=== PATIENT | male | born 1970 | race Caucasian/White ===

== ENCOUNTER 2016-09-04 22:37 | Emergency (ER) | payer MEDICAID ==
[2016-09-04 22:38] VITALS: BMI 24.0
[2016-09-04 22:49] VITALS: RESP 20
--- NOTE | 2016-09-04 23:08 | C.PDOC ---
History Of Present Illness Patient presents to the emergency room with ETOH intoxication. Patient wants a place to sleep. Patient denies any physical complaints. Patient admits to drinking ETOH tonight. Time Seen by Provider: 09/04/16 23:07 Chief Complaint (Nursing): Medical Clearance History Per: Patient History/Exam Limitations: no limitations Onset/Duration Of Symptoms: Hrs Current Symptoms Are (Timing): Still Present Severity: Mild Recent travel outside of the [place]: No Past Medical History Reviewed: Historical Data, Nursing Documentation, Vital Signs Vital Signs: Last Vital Signs Temp 98.3 F 09/04/16 22:44 Pulse 78 09/05/16 03:19 Resp 20 09/05/16 03:19 BP 130/70 09/05/16 03:19 Pulse Ox 97 09/05/16 03:19 - Medical History PMH: Diabetes, HTN, Hypercholesterolemia Denies: Chronic Kidney Disease Family History: States: No Known Family Hx - Social History Hx Tobacco Use: No Hx Alcohol Use: Yes Hx Substance Use: No - Immunization History Hx Tetanus Toxoid Vaccination: No Hx Influenza Vaccination: No Hx Pneumococcal Vaccination: No Review Of Systems Constitutional: Positive for: Other (ETOH intoxication). Negative for: Fever, Chills Gastrointestinal: Negative for: Nausea, Vomiting, Diarrhea Physical Exam - Physical Exam Appears: Non-toxic, No Acute Distress, Other (ETOH on breath) Skin: Warm, Dry, No Rash Extremity: Normal ROM, No Tenderness Neurological/Psych: Oriented x3, Normal Speech ED Course And Treatment O2 Sat by Pulse Oximetry: 98 Pulse Ox Interpretation: Normal Reevaluation Time: 05:14 Reassessment Condition: Improved ED OBSERVATION Discharge: Yes Date of observation admission: 09/04/16 Time of observation admission: 23:08 - Observation admission statement Patient is being placed in observation because:: acute alcohol intoxication - Goals of Observation Goals of observation are:: sobriety - Progress Note Progress Note: 09/04/16 23:08 vitals stable, no complaints. just wants to sleep 09/05/16 01:10 no complaints 09/05/16 03:10 vitals stable Disposition Counseled Patient/Family Regarding: Studies Performed, Diagnosis, Need For Followup - Disposition Referrals: [facility] [Outside] Disposition Time: 05:14 Condition: FAIR Instructions: Alcohol Intoxication (DC) - Clinical Impression Clinical Impression: Alcohol abuse - Scribe Statement The provider has reviewed the documentation as recorded by the Zaidaibsamia Lino Provider Scribe Attestation: All medical record entries made by the Scribe were at my direction and personally dictated by me. I have reviewed the chart and agree that the record accurately reflects my personal performance of the history, physical exam, medical decision making, and the department course for this patient. I have also personally directed, reviewed, and agree with the discharge instructions and disposition.
[2016-09-05 05:44] VITALS: BP 141/70; PULSE 79; TEMP 97.4; O2SAT 99
== END 2016-09-05 05:44 | disposition home or self-care (01) ==
LOC: C.ER 22:37
DX: F10.10 Alcohol abuse, uncomplicated (principal); Y90.9 Presence of alcohol in blood, level not specified

== ENCOUNTER 2017-02-24 15:09 | Emergency (ER) | payer MEDICAID ==
[2017-02-24 15:09] VITALS: BMI 24.0
[2017-02-24 15:20] VITALS: BP 131/91; PULSE 110; TEMP 98.1
--- NOTE | 2017-02-24 15:40 | C.PDOC ---
History Of Present Illness 46 year old male with a history of Diabetes and HTN presents to the ED with complaints of left great toe pain that began yesterday. Patient notes use of tooth pick to scrap the area but denies weakness or numbness. Time Seen by Provider: 02/24/17 15:32 Chief Complaint (Nursing): Lower Extremity Problem/Injury History Per: Patient History/Exam Limitations: no limitations Current Symptoms Are (Timing): Still Present Recent travel outside of the [place]: No Past Medical History Reviewed: Historical Data, Nursing Documentation, Vital Signs Vital Signs: Last Vital Signs Temp 98.1 F 02/24/17 15:17 Pulse 110 H 02/24/17 15:17 Resp 19 02/24/17 15:45 BP 131/91 H 02/24/17 15:17 Pulse Ox 99 02/24/17 15:45 - Medical History PMH: Diabetes, HTN, Hypercholesterolemia Denies: Chronic Kidney Disease Family History: States: Other Other Family History: Non-contributory. - Social History Hx Tobacco Use: No Hx Alcohol Use: Yes Hx Substance Use: No - Immunization History Hx Tetanus Toxoid Vaccination: No Hx Influenza Vaccination: No Hx Pneumococcal Vaccination: No Review Of Systems Except As Marked, All Systems Reviewed And Found Negative. Neurological: Negative for: Weakness, Numbness Physical Exam - Physical Exam Appears: Well, Non-toxic, No Acute Distress Skin: Warm, Dry Head: Atraumatic, Normacephalic Extremity: Normal ROM, No Tenderness, No Pedal Edema, No Calf Tenderness, Capillary Refill (good capillary refill, less than two seconds ), No Deformity, No Swelling, Other (ingrown toe nail to the left great toe with no erythema or swelling ) ED Course And Treatment O2 Sat by Pulse Oximetry: 100 (room air ) Disposition - Disposition Referrals: Tamar Pollock DPM [Staff Provider] - Disposition: HOME/ ROUTINE Disposition Time: 15:40 Condition: GOOD Additional Instructions: Please follow up with the foot doctor. Return to the ER for any worsening symptoms or for any other concerns. Prescriptions: Mupirocin 2% Ointment [Bactroban Ointment] 1 appl TP BID #1 tube Forms: General Discharge Instructions, [facility] (Sami) - Clinical Impression Clinical Impression: Toe pain - Scribe Statement The provider has reviewed the documentation as recorded by the Scribe Danya Kyle All medical record entries made by the Scribe were at my direction and personally dictated by me. I have reviewed the chart and agree that the record accurately reflects my personal performance of the history, physical exam, medical decision making, and the department course for this patient. I have also personally directed, reviewed, and agree with the discharge instructions and disposition.
[2017-02-24 15:46] VITALS: RESP 19
[2017-02-24 16:20] VITALS: O2SAT 100
== END 2017-02-24 15:45 | disposition home or self-care (01) ==
LOC: C.ER 15:09
DX: M79.675 Pain in left toe(s) (principal)

== ENCOUNTER 2017-05-01 18:01 | Emergency (ER) | payer MEDICAID ==
[2017-05-01 18:01] VITALS: BMI 24.0
[2017-05-01 18:18] VITALS: RESP 18; TEMP 98
[2017-05-01 18:35] VITALS: BP 124/75; PULSE 110; O2SAT 97
--- NOTE | 2017-05-01 19:13 | C.PDOC ---
History Of Present Illness 47 year old male with a PMHx of diabetes, non insulin dependent, presents to the ED for evaluation of right ankle pain. Patient reports pain is located more over lateral aspect of right ankle radiating up to his right hip and right lower back, pain worsens with movement. Otherwise, Patient denies fever, chills , headache, dizziness, neck pain, CP, SOB dyspnea, diaphoresis, palpitation, abd. pain, N/V/D, denies known direct trauma or injury, hematuria, saddle anesthesia, incontinence, denies weakness, sensory or vascular deficits to B/L LEs. No risk factors for DVT, PE. Ambulatory in ED with stable gait, not in nay apparent distress. Time Seen by Provider: 05/01/17 18:36 Chief Complaint (Nursing): Lower Extremity Problem/Injury History Per: Patient History/Exam Limitations: no limitations Onset/Duration Of Symptoms: Days Current Symptoms Are (Timing): Still Present Recent travel outside of the [place]: No Additional History Per: Patient - Ankle/Foot Currently Unable To: Bend Or Move Past Medical History Reviewed: Historical Data, Nursing Documentation, Vital Signs Vital Signs: Last Vital Signs Temp 98 F 05/01/17 18:15 Pulse 110 H 05/01/17 18:15 Resp 18 05/01/17 18:15 BP 124/75 05/01/17 18:15 Pulse Ox 97 05/01/17 19:46 - Medical History PMH: Diabetes, HTN, Hypercholesterolemia Denies: Chronic Kidney Disease Surgical History: No Surg Hx Family History: States: Unknown Family Hx - Social History Hx Tobacco Use: No Hx Alcohol Use: Yes Hx Substance Use: No - Immunization History Hx Tetanus Toxoid Vaccination: No Hx Influenza Vaccination: No Hx Pneumococcal Vaccination: No Review Of Systems Constitutional: Negative for: Fever, Chills Cardiovascular: Negative for: Chest Pain Respiratory: Negative for: Cough, Shortness of Breath Gastrointestinal: Negative for: Nausea, Vomiting, Abdominal Pain Genitourinary: Negative for: Incontinence Musculoskeletal: Positive for: Foot Pain (Right ankle) Skin: Negative for: Rash Neurological: Negative for: Weakness, Numbness, Headache Physical Exam - Physical Exam Appears: Non-toxic, No Acute Distress Skin: Normal Color, Warm, Dry Head: Normacephalic Eye(s): bilateral: PERRL Ear(s): Bilateral: Normal Nose: No Discharge, No Deformity Oral Mucosa: Moist, No Drooling Throat: Normal, No Erythema, No Exudate Neck: Normal ROM, Trachea Midline, Supple Chest: Symmetrical Cardiovascular: Rhythm Regular, No Murmur Respiratory: No Decreased Breath Sounds, No Accessory Muscle Use Gastrointestinal/Abdominal: Soft, No Tenderness, No Organomegaly, No Guarding, No Rebound Extremity: Normal ROM, Tenderness (Mild, over lateral aspect of right ankle ), No Pedal Edema, No Calf Tenderness (B/L), Capillary Refill (less than 2 seconds) , No Deformity, No Swelling Pulses: Left Dorsalis Pedis: Normal, Right Dorsalis Pedis: Normal Neurological/Psych: Oriented x3, Normal Speech, Normal Cognition, Normal Motor, Normal Sensation, Normal Reflexes ED Course And Treatment O2 Sat by Pulse Oximetry: 97 (On RA) Pulse Ox Interpretation: Normal - Other Rad Ls-pine X-Ray: Interpreted by Me, Viewed By Me Interpretation: no acute fx or sublux Right ankle X-Ray: Interpreted by Me, Viewed By Me Interpretation: (-) acute fx or dislocation Progress Note: Plan: -FSBS 208. -Toradol 60 mg IM given. -Ultram 50 mg PO given. -Right ankle X-Ray ordered. -LS spine X-Ray ordered. On re-evaluation , pt is ambulatory in ED ed, not in any apparent distress. Afebrile, hemodynamicaly stable. neck: Supple. ENT: no acute findings. Lungs: CTA B/L, BS equal B/L. ABd: benign. Back: (-) CVA tenderness. Neurologicaly intact. Imagings review and appears without acute abnormalities. Pt hsa clinical findings c/w Right leg pain r/o lumbar radiculopathy. ref. to f/u with PMD in 1 -2 days fr re-eavl. return to ED if any worsening or new changes. Disposition Counseled Patient/Family Regarding: Diagnosis, Need For Followup, Rx Given - Disposition Referrals: Salome Zamora MD [Medical Doctor] - Disposition: HOME/ ROUTINE Disposition Time: 19:33 Condition: STABLE Additional Instructions: Light duty to Right leg Avoid any physical activity for 1 week, no heavy lifting or bending. Take pain medication as prescribed Follow up with PMD, pain management in 2-3 days for re-evaluation. Return to ED if any worsening or new changes. Prescriptions: Methocarbamol [Robaxin] 500 mg PO TID #14 tab traMADol [Ultram] 50 mg PO TID #7 tab Instructions: Lumbar Radiculopathy (ED), Leg Pain (ED) Forms: [facility] (American) - Clinical Impression Clinical Impression: Ankle pain, Lumbar radiculopathy - PA / [employer] / Resident Statement MD/DO has reviewed & agrees with the documentation as recorded. - Scribe Statement The provider has reviewed the documentation as recorded by the Scribe Dax Moser All medical record entries made by the Scribsamia were at my direction and personally dictated by me. I have reviewed the chart and agree that the record accurately reflects my personal performance of the history, physical exam, medical decision making, and the department course for this patient. I have also personally directed, reviewed, and agree with the discharge instructions and disposition.
--- NOTE | 2017-05-02 10:06 | RAD ---
PROCEDURE: Right Ankle Radiographs. HISTORY: injury COMPARISON: None FINDINGS: BONES: Evidence of acute displaced fracture nor dislocation. . . There is a tiny of corticated bony density within the soft tissues subjacent to the medial inferior tip medial malleolus that may represent some old posttraumatic mineralization. JOINTS: Normal. No osteoarthritis. Ankle mortise maintained. Talar dome intact SOFT TISSUES: Normal. OTHER FINDINGS: None. IMPRESSION: No evidence of acute displaced fracture nor dislocation.
--- NOTE | 2017-05-02 10:22 | RAD ---
PROCEDURE: Facet joints appear HISTORY: injury COMPARISON: No prior. FINDINGS: BONES: Normal alignment. No listhesis. No fracture. DISC SPACES: Unremarkable. Slightly hypertrophic at the L5-S1 and to a lesser degree L4-L5 and less of the L3-L4 levels. OTHER FINDINGS: None. IMPRESSION: No acute fractures. Mild facet arthropathy as above.
== END 2017-05-01 20:12 | disposition home or self-care (01) ==
LOC: C.ER 18:01
DX: M25.571 Pain in right ankle and joints of right foot (principal); M54.16 Radiculopathy, lumbar region
CPT/HCPCS: 72100; 73610; 82948; 96372; 99284; J1885

== ENCOUNTER 2017-12-23 19:42 | Emergency (ER) | payer MEDICAID ==
[2017-12-23 19:42] VITALS: BMI 24.0
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
[2017-12-24 01:56] VITALS: O2SAT 98
[2017-12-24 04:50] VITALS: BP 124/77; PULSE 78; RESP 20; TEMP 98.5
== END 2017-12-24 05:43 | disposition home or self-care (01) ==
LOC: C.ER 19:42
DX: F10.129 Alcohol abuse with intoxication, unspecified (principal); Y90.9 Presence of alcohol in blood, level not specified

== ENCOUNTER 2018-01-09 09:57 | Emergency (ER) | payer MEDICAID ==
[2018-01-09 09:57] VITALS: BMI 24.0
[2018-01-09 10:07] VITALS: BP 127/89; PULSE 96; RESP 16; TEMP 98; O2SAT 100
--- NOTE | 2018-01-11 09:18 | C.PDOC ---
History Of Present Illness PT LEFT PRIOR TO MY EVALUATION. RN PUT IN STANDING ORDER FOR MEDICATION. Time Seen by Provider: 01/09/18 10:23 Chief Complaint (Nursing): ENT Problem Past Medical History Vital Signs: Last Vital Signs Temp 98 F 01/09/18 10:06 Pulse 96 H 01/09/18 10:06 Resp 16 01/09/18 10:06 BP 127/89 01/09/18 10:06 Pulse Ox 100 01/11/18 09:18 - Medical History PMH: Diabetes (cannot recall medications), HTN, Hypercholesterolemia Denies: Chronic Kidney Disease Family History: States: Unknown Family Hx - Social History Hx Tobacco Use: No Hx Alcohol Use: Yes Hx Substance Use: No (UNKNOWN) - Immunization History Hx Tetanus Toxoid Vaccination: No Hx Influenza Vaccination: No Hx Pneumococcal Vaccination: No ED Course And Treatment O2 Sat by Pulse Oximetry: 100 Disposition - Disposition Disposition: LEFT W/O BEING SEEN - ER ONLY Disposition Time: 10:00 Condition: UNKNOWN Forms: [facility] (Maltese) - Clinical Impression Clinical Impression: Patient left without being seen
== END 2018-01-09 10:23 | disposition left against medical advice (07) ==
LOC: C.ER 09:57
DX: Z02.89 Encounter for other administrative examinations (principal); H92.02 Otalgia, left ear

== ENCOUNTER → 2018-01-17 23:44 | Emergency (ER) | payer MEDICAID ==
[2018-01-17 23:44] VITALS: BMI 24.0
== END | disposition left against medical advice (07) ==
LOC: C.ER 23:44
DX: Z02.89 Encounter for other administrative examinations (principal); F19.10 Other psychoactive substance abuse, uncomplicated

== ENCOUNTER 2018-02-01 21:46 | Emergency (ER) | payer MEDICAID ==
[2018-02-01 21:46] VITALS: BMI 24.0
[2018-02-01 21:58] VITALS: TEMP 98.9
[2018-02-01] MEDS ORDERED: Sodium Chloride 0.9% 1,000 ML IV ONE (22:06)
--- NOTE | 2018-02-01 22:21 | C.PDOC ---
History Of Present Illness 47 year old male is brought to the ED by a friend for evaluation of alcohol intoxication. Patient drinks daily, is inebriated while in the ED. Patient denies SI/HI, hallucinations, other complaints. Time Seen by Provider: 02/01/18 22:06 Chief Complaint (Nursing): Substance Abuse History Per: Patient History/Exam Limitations: intoxication Onset/Duration Of Symptoms: Hrs Current Symptoms Are (Timing): Still Present Suicide/Self Injury Attempted (Context): None Modifying Factor(s): Alcohol Associated Symptoms: denies: Depression, Suicidal Thoughts, Suicidal Plan Additional History Per: Patient, Friend Past Medical History Reviewed: Historical Data, Nursing Documentation, Vital Signs Vital Signs: Last Vital Signs Temp 98.9 F 02/01/18 21:54 Pulse 115 H 02/02/18 00:13 Resp 18 02/02/18 00:13 BP 115/70 02/02/18 00:13 Pulse Ox 96 02/02/18 00:13 - Medical History PMH: Diabetes (cannot recall medications), HTN, Hypercholesterolemia Denies: Chronic Kidney Disease Surgical History: No Surg Hx Family History: States: Unknown Family Hx - Social History Hx Tobacco Use: No Hx Alcohol Use: Yes Hx Substance Use: No (UNKNOWN) - Immunization History Hx Tetanus Toxoid Vaccination: No Hx Influenza Vaccination: No Hx Pneumococcal Vaccination: No Review Of Systems Constitutional: Negative for: Fever, Chills Cardiovascular: Negative for: Chest Pain, Palpitations Respiratory: Negative for: Cough, Shortness of Breath Gastrointestinal: Negative for: Nausea, Vomiting Skin: Negative for: Rash Neurological: Negative for: Weakness, Numbness Psych: Negative for: Depression, Suicidal ideation Physical Exam - Physical Exam Appears: Non-toxic, No Acute Distress Skin: Warm, Dry Head: Normacephalic Eye(s): bilateral: Normal Inspection Neck: Supple Chest: Symmetrical Cardiovascular: Rhythm Regular Respiratory: No Rales, No Rhonchi, No Wheezing Gastrointestinal/Abdominal: Soft, No Tenderness, No Guarding, No Rebound Extremity: No Tenderness, No Swelling Extremity: Bilateral: Atraumatic, Normal Color And Temperature, Normal ROM Neurological/Psych: Oriented x3, Normal Speech Gait: Steady ED Course And Treatment - Laboratory Results Result Diagrams: 02/01/18 22:16 02/01/18 22:16 O2 Sat by Pulse Oximetry: 95 (ON RA) Pulse Ox Interpretation: Normal Progress Note: 12:37 AM - went to re-examine the pt, but pt had eloped Disposition Counseled Patient/Family Regarding: Studies Performed, Diagnosis - Disposition Disposition: ELOPEMENT - ER ONLY Disposition Time: 00:37 Condition: FAIR Instructions: Alcohol Abuse and Alcoholism (DC) Forms: [facility] (Bengali) - Clinical Impression Clinical Impression: Alcohol intoxication - Scribe Statement The provider has reviewed the documentation as recorded by the Scribe Dax Moser All medical record entries made by the Scribe were at my direction and personally dictated by me. I have reviewed the chart and agree that the record accurately reflects my personal performance of the history, physical exam, medical decision making, and the department course for this patient. I have also personally directed, reviewed, and agree with the discharge instructions and disposition.
[2018-02-01 22:25] LABS: BASO % 0.6 % (0.0-2.0); EOS % 0.5 % (0.0-4.0); HEMOGLOBIN 14.5 g/dL (12.0-18.0); LYMPH # 1.8 K/uL (1.0-4.3); MEAN CELL VOLUME 90.6 fL (80.0-94.0); MEAN CORPUSCULAR HEMOGLOBIN 31.6 pg (27.0-31.0); MEAN CORPUSCULAR HGB CONC 34.9 g/dL (33.0-37.0); MEAN PLATELET VOLUME 7.2 fL (7.2-11.7); MONO # 0.4 K/uL (0.0-0.8); MONO % 7.7 % (0.0-10.0); NEUT % 57.2 % (50.0-75.0); RBC 4.6 Mil/uL (4.40-5.90); RED CELL DISTRIBUTION WIDTH 14.1 % (11.5-14.5); WHITE BLOOD COUNT 5.3 K/uL (4.8-10.8)
[2018-02-01 22:43] LABS: ALB/GLOB RATIO 1.5 (1.0-2.1); ALBUMIN 4.2 g/dL (3.5-5.0); ALT/SGPT 25 U/L (21-72); AST/SGOT 42 U/L (17-59); BLOOD UREA NITROGEN 14 mg/dL (9-20); CALCIUM 8.7 mg/dl (8.6-10.4); GFR NON-AFRICAN AMERICAN > 60
[2018-02-02 00:13] VITALS: BP 115/70; PULSE 115; RESP 18
[2018-02-02 00:38] VITALS: O2SAT 95
== END 2018-02-02 00:13 | disposition left against medical advice (07) ==
LOC: C.ER 21:46
DX: F10.129 Alcohol abuse with intoxication, unspecified (principal); Y90.8 Blood alcohol level of 240 mg/100 ml or more
CPT/HCPCS: 80053; 80320; 82948; 85025; 96360; 99282; J7030

== ENCOUNTER 2018-04-23 21:49 | Emergency (ER) | payer MEDICAID ==
[2018-04-23 21:49] VITALS: BMI 24.0
[2018-04-23 21:54] VITALS: RESP 16; TEMP 97.5
--- NOTE | 2018-04-23 23:07 | C.PDOC ---
History Of Present Illness 48 year old male is brought to the ED by EMS for evaluation of left ear irritation. Patient scrapes the inside of left ear with FB. Patient has multiple presentations to the ED for alcohol abuse and ear canal irritation. Patient denies SI/HI, hallucinations, headache, dizziness, nausea, vomit, rash. Time Seen by Provider: 04/23/18 22:02 Chief Complaint (Nursing): ENT Problem History Per: Patient, EMS History/Exam Limitations: intoxication Onset/Duration Of Symptoms: Days Current Symptoms Are (Timing): Still Present Suicide/Self Injury Attempted (Context): None Modifying Factor(s): Alcohol Associated Symptoms: denies: Depression, Suicidal Thoughts, Suicidal Plan Recent travel outside of the [place]: No Additional History Per: Patient Past Medical History Reviewed: Historical Data, Nursing Documentation, Vital Signs Vital Signs: Last Vital Signs Temp 97.5 F L 04/23/18 21:52 Pulse 120 H 04/23/18 21:52 Resp 16 04/23/18 21:52 BP 145/83 04/23/18 21:52 Pulse Ox 98 04/23/18 21:52 - Medical History PMH: Diabetes (cannot recall medications), HTN, Hypercholesterolemia Denies: Chronic Kidney Disease Surgical History: No Surg Hx Family History: States: Unknown Family Hx - Social History Hx Tobacco Use: No Hx Alcohol Use: Yes Hx Substance Use: No - Immunization History Hx Tetanus Toxoid Vaccination: No Hx Influenza Vaccination: No Hx Pneumococcal Vaccination: No Review Of Systems Constitutional: Negative for: Fever, Chills ENT: Positive for: Ear Pain. Negative for: Ear Discharge, Nose Discharge, Nose Congestion Respiratory: Negative for: Cough, Shortness of Breath Gastrointestinal: Negative for: Nausea, Vomiting, Abdominal Pain Skin: Negative for: Rash Neurological: Negative for: Headache, Dizziness Physical Exam - Physical Exam Appears: Non-toxic, No Acute Distress, Other (AOB ) Skin: Normal Color, Warm, Dry Head: Atraumatic, Normacephalic Eye(s): bilateral: Normal Inspection Ear(s): Bilateral: Other (excoriated ear canal right > left) Oral Mucosa: Moist Neck: Normal ROM, Supple Chest: Symmetrical Cardiovascular: Rhythm Regular Respiratory: Normal Breath Sounds, No Rales, No Rhonchi, No Wheezing Extremity: Normal ROM, No Tenderness, No Swelling Neurological/Psych: Oriented x3, Normal Speech, Normal Cognition Gait: Unsteady (alcohol abuse) ED Course And Treatment O2 Sat by Pulse Oximetry: 98 (ON RA) Pulse Ox Interpretation: Normal Medical Decision Making Medical Decision Making: alcohol abuse L ear canal excoriation without otitis externa prior presentations similar Disposition Doctor Will See Patient In The: Office Counseled Patient/Family Regarding: Studies Performed, Diagnosis - Disposition Disposition: HOME/ ROUTINE Disposition Time: 23:05 Condition: GOOD Additional Instructions: do NOT scrape the inside of your ear canal- it is scratching the ear canal and can cause an infection NEVER PUT ANYTHING IN YOUR EAR CANAL Seek AA and psych counseling for your alcohol abuse issues. Instructions: Alcohol Abuse and Alcoholism (DC) Forms: [employer] (Maltese) - Clinical Impression Clinical Impression: Alcohol abuse, Excoriation of left ear canal - Scribe Statement The provider has reviewed the documentation as recorded by the Scribe Dax Moser All medical record entries made by the Scribe were at my direction and personally dictated by me. I have reviewed the chart and agree that the record accurately reflects my personal performance of the history, physical exam, medical decision making, and the department course for this patient. I have also personally directed, reviewed, and agree with the discharge instructions and disposition.
[2018-04-23 23:37] VITALS: BP 128/80; PULSE 90; O2SAT 97
== END 2018-04-23 23:35 | disposition home or self-care (01) ==
LOC: C.ER 21:49
DX: S00.412A Abrasion of left ear, initial encounter (principal); X58.XXXA Exposure to other specified factors, initial encounter; Y92.9 Unspecified place or not applicable; F10.10 Alcohol abuse, uncomplicated; E11.9 Type 2 diabetes mellitus without complications

== ENCOUNTER 2018-04-23 23:47 | Emergency (ER) | payer MEDICAID ==
[2018-04-23 23:48] VITALS: BMI 24.0
[2018-04-24 00:01] VITALS: BP 133/82; PULSE 100; RESP 20; TEMP 97.8; O2SAT 100
--- NOTE | 2018-04-24 00:16 | C.PDOC ---
History Of Present Illness 48 year old male presents to the ED c/o left earache. Patient was seen at the ED earlier today for same symptoms. Patient also presents with a referral for a foot X-Ray by print project manager, currently c/o joint pain. Patient denies fever, chills, headache, injury, fall, trauma, dizziness. Time Seen by Provider: 04/24/18 00:01 Chief Complaint (Nursing): ENT Problem History Per: Patient History/Exam Limitations: intoxication Onset/Duration Of Symptoms: Days Current Symptoms Are (Timing): Still Present Reports Recently: Seen In ED (04/23/18) Recent travel outside of the [place]: No Additional History Per: Patient Past Medical History Reviewed: Historical Data, Nursing Documentation, Vital Signs Vital Signs: Last Vital Signs Temp 97.8 F 04/23/18 23:57 Pulse 100 H 04/23/18 23:57 Resp 20 04/23/18 23:57 BP 133/82 04/23/18 23:57 Pulse Ox 100 04/23/18 23:57 - Medical History PMH: Diabetes (cannot recall medications), HTN, Hypercholesterolemia Denies: Chronic Kidney Disease Surgical History: No Surg Hx Family History: States: Unknown Family Hx - Social History Hx Tobacco Use: No Hx Alcohol Use: Yes Hx Substance Use: No - Immunization History Hx Tetanus Toxoid Vaccination: No Hx Influenza Vaccination: No Hx Pneumococcal Vaccination: No Review Of Systems Constitutional: Negative for: Fever, Chills ENT: Positive for: Ear Pain. Negative for: Ear Discharge, Nose Discharge Respiratory: Negative for: Cough, Shortness of Breath Gastrointestinal: Negative for: Nausea, Vomiting Skin: Negative for: Rash Neurological: Negative for: Weakness, Numbness, Headache, Dizziness Physical Exam - Physical Exam Appears: Non-toxic, No Acute Distress Skin: Normal Color, Warm, Dry Head: Atraumatic, Normacephalic Eye(s): bilateral: Normal Inspection Ear(s): Left: Other (excoriations to ear canal, TM visualized, no effusion), Right: Normal Throat: Normal, No Erythema, No Exudate Neck: Normal ROM, Supple Extremity: Normal ROM, No Tenderness, No Deformity Neurological/Psych: Oriented x3, Normal Speech, Normal Cognition Gait: Steady ED Course And Treatment O2 Sat by Pulse Oximetry: 100 (ON RA) Pulse Ox Interpretation: Normal Progress Note: Plan: - Motrin 600 mg PO. Patient's PE findings were consistent with previous visit earlier today. Patient is requesting pain medications Motrin was given. Patient is advised to follow up with ENT or PMD for further evaluation. Disposition Counseled Patient/Family Regarding: Diagnosis, Need For Followup - Disposition Referrals: Diaz Boss MD [Staff Provider] - [facility] [Outside] Disposition: HOME/ ROUTINE Disposition Time: 00:14 Condition: STABLE Additional Instructions: Do not put q tips, pins or other objects inside ears Follow up in clinic or with ENT doctor Return if worse Instructions: Joint Pain Forms: [employer] (British) - Clinical Impression Clinical Impression: Earache on left, Arthralgia - PA / YOUTH DEVELOPMENT SPECIALIST / Resident Statement MD/DO has reviewed & agrees with the documentation as recorded. - Scribe Statement The provider has reviewed the documentation as recorded by the Scribe Dax Moser All medical record entries made by the Scribe were at my direction and personally dictated by me. I have reviewed the chart and agree that the record accurately reflects my personal performance of the history, physical exam, medical decision making, and the department course for this patient. I have also personally directed, reviewed, and agree with the discharge instructions and disposition.
== END 2018-04-24 00:20 | disposition home or self-care (01) ==
LOC: C.ER 23:47
DX: H92.02 Otalgia, left ear (principal); M25.50 Pain in unspecified joint

== ENCOUNTER 2018-05-09 01:47 | Emergency (ER) | payer MEDICAID ==
[2018-05-09 02:01] VITALS: BMI 24.3
[2018-05-09 02:03] VITALS: O2SAT 99
--- NOTE | 2018-05-09 02:12 | C.PDOC ---
History Of Present Illness 48 year old male is brought to the ED by EMS for alcohol intoxication. Patient reports he got into an argument with his father at home and was sent to the ED. Patient states he was drinking heavy today. Patient denies SI/HI, hallucinations, CP, SOB, injury, fall, trauma, drug abuse. Chief Complaint (Nursing): Substance Abuse History Per: Patient, EMS History/Exam Limitations: intoxication Onset/Duration Of Symptoms: Hrs Current Symptoms Are (Timing): Still Present Suicide/Self Injury Attempted (Context): None Modifying Factor(s): Alcohol Associated Symptoms: Anger. denies: Depression, Suicidal Thoughts, Suicidal Plan Additional History Per: Patient, EMS Past Medical History Reviewed: Historical Data, Nursing Documentation, Vital Signs Vital Signs: Last Vital Signs Temp 97.8 F 05/09/18 02:01 Pulse 115 H 05/09/18 02:01 Resp 19 05/09/18 02:01 BP 127/71 05/09/18 02:01 Pulse Ox 99 05/09/18 02:01 - Medical History PMH: Diabetes (cannot recall medications), HTN, Hypercholesterolemia Denies: Chronic Kidney Disease Surgical History: No Surg Hx Family History: States: Unknown Family Hx - Social History Hx Tobacco Use: No Hx Alcohol Use: Yes Hx Substance Use: No - Immunization History Hx Tetanus Toxoid Vaccination: No Hx Influenza Vaccination: No Hx Pneumococcal Vaccination: No Review Of Systems Constitutional: Negative for: Fever, Chills Eyes: Negative for: Vision Change Respiratory: Negative for: Cough, Shortness of Breath Gastrointestinal: Negative for: Nausea, Vomiting, Abdominal Pain Neurological: Negative for: Weakness, Numbness Psych: Negative for: Depression, Suicidal ideation Physical Exam - Physical Exam Appears: Non-toxic, No Acute Distress, Other (AOB) Skin: Normal Color, Warm, Dry Head: Atraumatic, Normacephalic Eye(s): bilateral: Normal Inspection Neck: Normal ROM, Supple Chest: Symmetrical Cardiovascular: Rhythm Regular Respiratory: Normal Breath Sounds, No Rales, No Rhonchi, No Wheezing Gastrointestinal/Abdominal: Soft, No Tenderness, No Guarding, No Rebound Extremity: Normal ROM, No Tenderness, No Swelling Neurological/Psych: Oriented x3, Normal Speech, Normal Cognition Gait: Steady ED Course And Treatment O2 Sat by Pulse Oximetry: 99 (On RA) Pulse Ox Interpretation: Normal Disposition Counseled Patient/Family Regarding: Diagnosis - Disposition Referrals: [facility] [Outside] Disposition: HOME/ ROUTINE Disposition Time: 06:10 Condition: GOOD Forms: [facility] (Romansh) - POA Present On Arrival: None - Clinical Impression Clinical Impression: Alcohol intoxication - Scribe Statement The provider has reviewed the documentation as recorded by the Scribe Dax Moser All medical record entries made by the Scribe were at my direction and personally dictated by me. I have reviewed the chart and agree that the record accurately reflects my personal performance of the history, physical exam, medical decision making, and the department course for this patient. I have also personally directed, reviewed, and agree with the discharge instructions and disposition.
[2018-05-09 04:51] VITALS: BP 122/70; PULSE 100; RESP 20; TEMP 97.9
== END 2018-05-09 06:00 | disposition home or self-care (01) ==
LOC: C.ER 01:47
DX: F10.129 Alcohol abuse with intoxication, unspecified (principal); E11.9 Type 2 diabetes mellitus without complications

== ENCOUNTER 2018-05-16 23:27 | Emergency (ER) | payer MEDICAID ==
[2018-05-16 23:27] VITALS: BMI 24.3
[2018-05-16] MEDS ORDERED: Sodium Chloride 0.9% 1,000 ML IV ONE (23:45)
--- NOTE | 2018-05-16 23:45 | C.PDOC ---
History Of Present Illness The patient is brought to the ED by EMS after he was found publicly intoxicated prior to arrival. Patient admits to drinking today and was found to have finger stick blood glucose of 375 in the ED. Patient denies recent injuries/trauma and suicidal/homicidal ideation at this time. Time Seen by Provider: 05/16/18 23:44 Chief Complaint (Nursing): Substance Abuse History Per: Patient, EMS History/Exam Limitations: intoxication Onset/Duration Of Symptoms: Hrs Current Symptoms Are (Timing): Still Present Suicide/Self Injury Attempted (Context): None Modifying Factor(s): Alcohol Severity: None Pain Scale Rating Of: 0 Associated Symptoms: denies: Suicidal Thoughts, Suicidal Plan Involuntary Hold By: None Recent travel outside of the [place]: No Additional History Per: Patient, EMS Past Medical History Reviewed: Historical Data, Nursing Documentation, Vital Signs Vital Signs: Last Vital Signs Temp 97.6 F 05/16/18 23:29 Pulse 114 H 05/16/18 23:29 Resp 20 05/16/18 23:29 BP 127/73 05/16/18 23:29 Pulse Ox 100 05/16/18 23:29 - Medical History PMH: Diabetes (cannot recall medications), HTN, Hypercholesterolemia Denies: Chronic Kidney Disease Surgical History: No Surg Hx Family History: States: Unknown Family Hx - Social History Hx Tobacco Use: No Hx Alcohol Use: Yes Hx Substance Use: No - Immunization History Hx Tetanus Toxoid Vaccination: No Hx Influenza Vaccination: No Hx Pneumococcal Vaccination: No Review Of Systems Constitutional: Positive for: Other (elevated blood glucose ). Negative for: Fever, Chills Cardiovascular: Negative for: Chest Pain, Palpitations Respiratory: Negative for: Cough, Shortness of Breath Gastrointestinal: Negative for: Nausea, Vomiting, Abdominal Pain Skin: Negative for: Rash, Lesions, Jaundice, Bruising Psych: Positive for: Other (EtOH intoxication ). Negative for: Suicidal ideation Physical Exam - Physical Exam Appears: Non-toxic, No Acute Distress, Other (visibly intoxicated ) Skin: Warm, Dry, No Other (signs of trauma) Head: Normacephalic Eye(s): bilateral: Normal Inspection Oral Mucosa: Moist, Other (alcohol on breath ) Neck: Supple Chest: Symmetrical, No Deformity Cardiovascular: Rhythm Regular Respiratory: No Accessory Muscle Use Extremity: Normal ROM Neurological/Psych: Other (arousable to touch and verbal stimuli ) ED Course And Treatment - Laboratory Results Result Diagrams: 05/17/18 00:04 05/17/18 00:04 O2 Sat by Pulse Oximetry: 100 (on RA ) Pulse Ox Interpretation: Normal Progress Note: Bloodwork and urinalysis ordered and reviewed. IV fluids given. Reevaluation Time: 05:17 Disposition Counseled Patient/Family Regarding: Studies Performed, Diagnosis - Disposition Referrals: [facility] [Outside] Disposition: HOME/ ROUTINE Disposition Time: 23:45 Condition: FAIR Instructions: Alcohol Abuse and Alcoholism (DC), Hyperglycemia, Adult (DC) Forms: [employer] (Chilean) - Clinical Impression Clinical Impression: Alcohol intoxication, Hyperglycemia - Scribe Statement The provider has reviewed the documentation as recorded by the Scribe (Geena Boone) Provider Attestation: All medical record entries made by the Scribe were at my direction and personally dictated by me. I have reviewed the chart and agree that the record accurately reflects my personal performance of the history, physical exam, medical decision making, and the department course for this patient. I have also personally directed, reviewed, and agree with the discharge instructions and disposition.
[2018-05-17 00:07] LABS: BASO % 0.9 % (0.0-2.0); EOS # 0.2 K/uL (0.0-0.7); EOS % 4.4 % (0.0-4.0); HEMOGLOBIN 13.2 g/dL (12.0-18.0); LYMPH # 1.3 K/uL (1.0-4.3); LYMPH % 31.2 % (20.0-40.0); MEAN CELL VOLUME 97.3 fL (80.0-94.0); MEAN CORPUSCULAR HEMOGLOBIN 33.6 pg (27.0-31.0); MEAN CORPUSCULAR HGB CONC 34.6 g/dL (33.0-37.0); MEAN PLATELET VOLUME 7.8 fL (7.2-11.7); MONO # 0.3 K/uL (0.0-0.8); MONO % 8.3 % (0.0-10.0); NEUT # 2.3 K/uL (1.8-7.0); NEUT % 55.2 % (50.0-75.0); NRBC % 0.1 % (0.0-2.0); RBC 3.91 Mil/uL (4.40-5.90); RED CELL DISTRIBUTION WIDTH 12.6 % (11.5-14.5); WHITE BLOOD COUNT 4.2 K/uL (4.8-10.8)
[2018-05-17 00:15] LABS: VENOUS BLOOD GAS BASE EXCESS -0.4 mmol/L (0.0-2.0); VENOUS BLOOD GAS PCO2 42 mmHg (40-60); VENOUS BLOOD GAS PO2 72 mm/Hg (30-55); VENOUS BLOOD PH 7.38 (7.32-7.43)
[2018-05-17 00:19] LABS: ALB/GLOB RATIO 1.6 (1.0-2.1); ALBUMIN 4.3 g/dL (3.5-5.0); ALT/SGPT 24 U/L (21-72); AST/SGOT 28 U/L (17-59); BLOOD UREA NITROGEN 11 mg/dL (9-20); CALCIUM 8.9 mg/dl (8.6-10.4); GFR NON-AFRICAN AMERICAN > 60
[2018-05-17 00:58] LABS: URINE BILIRUBIN NEGATIVE (NEGATIVE); URINE BLOOD NEGATIVE (NEGATIVE); URINE CLARITY Clear (Clear); URINE COLOR Straw (YELLOW); URINE GLUCOSE (UA) 3+ mg/dL (Normal); URINE LEUKOCYTE ESTERASE NEG Leu/uL (Negative); URINE PROTEIN NEGATIVE (NEGATIVE); URINE UROBILINOGEN NORMAL mg/dL (0.2-1.0)
[2018-05-17 05:17] VITALS: O2SAT 100
[2018-05-17 06:08] VITALS: BP 137/77; PULSE 97; RESP 20; TEMP 98.7
== END 2018-05-17 06:17 | disposition home or self-care (01) ==
LOC: C.ER 23:27
DX: F10.129 Alcohol abuse with intoxication, unspecified (principal); E11.65 Type 2 diabetes mellitus with hyperglycemia; E78.00 Pure hypercholesterolemia, unspecified; I10 Essential (primary) hypertension
CPT/HCPCS: 80053; 80320; 81001; 82009; 82803; 82948; 85025; 96360; 99285; J7030

== ENCOUNTER 2018-05-17 08:44 | Emergency (ER) | payer MEDICAID ==
[2018-05-17 09:07] VITALS: BMI 23.6
[2018-05-17 09:08] VITALS: TEMP 98.4
[2018-05-17 09:33] VITALS: BP 129/87; PULSE 112; RESP 14; O2SAT 98
--- NOTE | 2018-05-17 09:49 | C.PDOC ---
History Of Present Illness 48 y/o homeless male,w/PMhx of diabetes and ETOH abuse, presents to the ER for ETOH abuse and "hand shaking". Patient was evaluated for ETOH abuse in [facility] ER and discharged at 5 am today. Patient states that he drank few pints of vodkas. 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 Of note, patient is well known to [facility] ER for multiple visits for ETOH abuse. Time Seen by Provider: 05/17/18 08:55 Chief Complaint (Nursing): Substance Abuse History Per: Patient History/Exam Limitations: no limitations Past Medical History Reviewed: Historical Data, Nursing Documentation, Vital Signs Vital Signs: Last Vital Signs Temp 98.4 F 05/17/18 08:57 Pulse 112 H 05/17/18 09:32 Resp 14 05/17/18 09:32 BP 129/87 05/17/18 09:32 Pulse Ox 98 05/17/18 09:32 - Medical History PMH: Diabetes (cannot recall medications), HTN, Hypercholesterolemia Denies: Chronic Kidney Disease Other Surgeries: Hx of surgeries Family History: States: No Known Family Hx - Social History Hx Tobacco Use: No Hx Alcohol Use: Yes Hx Substance Use: No - Immunization History Hx Tetanus Toxoid Vaccination: No Hx Influenza Vaccination: No Hx Pneumococcal Vaccination: No Review Of Systems Except As Marked, All Systems Reviewed And Found Negative. Constitutional: Negative for: Fever, Chills Psych: Negative for: Suicidal ideation Physical Exam - Physical Exam Appears: Other (awake,alert, oriented x2, mild tremors) Skin: Normal Color, Warm, Dry Head: Atraumatic, Normacephalic Eye(s): bilateral: Normal Inspection Nose: Normal Oral Mucosa: Moist Neck: Supple Chest: Symmetrical Cardiovascular: Rhythm Regular Respiratory: Normal Breath Sounds, No Rales, No Rhonchi, No Wheezing Gastrointestinal/Abdominal: Normal Exam, Soft, No Tenderness, No Guarding, No Rebound Neurological/Psych: Other (oriented x2) Gait: Steady ED Course And Treatment O2 Sat by Pulse Oximetry: 98 (RA) Pulse Ox Interpretation: Normal Medical Decision Making Medical Decision Making: alcohol withdrawal declines detox glu wnl baseline exam ok for d/c. Disposition Doctor Will See Patient In The: Office Counseled Patient/Family Regarding: Studies Performed, Diagnosis - Disposition Referrals: [facility] [Outside] [facility] [Outside] [facility] [Outside] [facility] [Outside] [facility] [Outside] Disposition: HOME/ ROUTINE Disposition Time: 09:48 Condition: GOOD Additional Instructions: you were given Librium 50 mg today your glucose is well controlled 152 Please seek alcohol detox programs seek regular employment and housing/detention placement. Instructions: Type 2 Diabetes, Alcohol Use - When Is Drinking a Problem? Forms: [employer] (German) - Clinical Impression Clinical Impression: Alcohol dependence, Diabetes - Scribe Statement The provider has reviewed the documentation as recorded by the Max Vyas Provider Attestation: All medical record entries made by the Scribe were at my direction and personally dictated by me. I have reviewed the chart and agree that the record accurately reflects my personal performance of the history, physical exam, medical decision making, and the department course for this patient. I have also personally directed, reviewed, and agree with the discharge instructions and disposition.
== END 2018-05-17 10:05 | disposition home or self-care (01) ==
LOC: C.ER 08:44
DX: F10.20 Alcohol dependence, uncomplicated (principal); Y90.9 Presence of alcohol in blood, level not specified; E11.9 Type 2 diabetes mellitus without complications

== ENCOUNTER 2018-05-22 20:01 | Emergency (ER) | payer MEDICAID ==
[2018-05-22 20:01] VITALS: BMI 23.6
== END 2018-05-22 20:12 | disposition left against medical advice (07) ==
LOC: C.ER 20:01
DX: Z02.89 Encounter for other administrative examinations (principal); F19.10 Other psychoactive substance abuse, uncomplicated

== ENCOUNTER 2018-05-27 13:01 | Emergency (ER) | payer MEDICAID ==
[2018-05-27 13:01] VITALS: BMI 23.6
[2018-05-27 13:15] VITALS: BP 156/85; PULSE 114; RESP 22; TEMP 98; O2SAT 100
== END 2018-05-27 13:08 | disposition left against medical advice (07) ==
LOC: C.ER 13:01
DX: Z02.89 Encounter for other administrative examinations (principal); F19.10 Other psychoactive substance abuse, uncomplicated
CPT/HCPCS: 82948; LWBS0

== ENCOUNTER 2018-06-03 22:45 | Emergency (ER) | payer MEDICAID ==
[2018-06-03 22:45] VITALS: BMI 23.6
--- NOTE | 2018-06-03 23:02 | C.PDOC ---
History Of Present Illness 48 year old male is brought to the ED by EMS for alcohol intoxication. Patient was found sleeping in a parking lot. Patient was initially uncooperative, patient admits drinking alcohol today. Patient denies SI/HI, hallucinations, CP, SOB, injury, fall, trauma. Time Seen by Provider: 06/03/18 23:01 Chief Complaint (Nursing): Substance Abuse History Per: Patient, EMS History/Exam Limitations: intoxication Onset/Duration Of Symptoms: Hrs Current Symptoms Are (Timing): Still Present Suicide/Self Injury Attempted (Context): None Modifying Factor(s): Alcohol Associated Symptoms: denies: Depression, Suicidal Thoughts, Suicidal Plan Recent travel outside of the [place]: No Additional History Per: Patient, EMS Past Medical History Reviewed: Historical Data, Nursing Documentation, Vital Signs - Medical History PMH: Diabetes (cannot recall medications), HTN, Hypercholesterolemia Denies: Chronic Kidney Disease Surgical History: No Surg Hx Family History: States: Unknown Family Hx - Social History Hx Tobacco Use: No Hx Alcohol Use: Yes Hx Substance Use: No - Immunization History Hx Tetanus Toxoid Vaccination: No Hx Influenza Vaccination: No Hx Pneumococcal Vaccination: No Review Of Systems Constitutional: Negative for: Fever, Chills Cardiovascular: Negative for: Chest Pain, Palpitations Respiratory: Negative for: Shortness of Breath Gastrointestinal: Negative for: Nausea, Vomiting, Abdominal Pain Skin: Negative for: Rash Psych: Negative for: Depression, Suicidal ideation Physical Exam - Physical Exam Appears: Non-toxic, No Acute Distress Skin: Warm, Dry Head: Normacephalic Eye(s): bilateral: Normal Inspection Neck: Supple Chest: Symmetrical Cardiovascular: Rhythm Regular Respiratory: No Rales, No Rhonchi, No Wheezing Gastrointestinal/Abdominal: Soft, No Tenderness, No Guarding, No Rebound Extremity: Bilateral: Atraumatic, Normal Color And Temperature, Normal ROM Neurological/Psych: Oriented x3, Normal Speech, Normal Cognition Gait: Steady ED Course And Treatment O2 Sat by Pulse Oximetry: 98 (ON RA) Pulse Ox Interpretation: Normal Reevaluation Time: 05:21 Reassessment Condition: Improved Disposition Counseled Patient/Family Regarding: Studies Performed, Diagnosis, Need For Followup - Disposition Referrals: [facility] [Outside] Disposition: HOME/ ROUTINE Disposition Time: 23:02 Condition: FAIR Instructions: Alcohol Abuse and Alcoholism (DC) Forms: [employer] (Ukrainian) - Clinical Impression Clinical Impression: Alcohol intoxication - Scribe Statement The provider has reviewed the documentation as recorded by the Scribe Dax Moser All medical record entries made by the Scribe were at my direction and personally dictated by me. I have reviewed the chart and agree that the record accurately reflects my personal performance of the history, physical exam, medical decision making, and the department course for this patient. I have also personally directed, reviewed, and agree with the discharge instructions and disposition.
[2018-06-04 03:01] VITALS: RESP 16
[2018-06-04 04:17] VITALS: PULSE 99
[2018-06-04 05:44] VITALS: BP 105/73; TEMP 98.7; O2SAT 100
== END 2018-06-04 06:19 | disposition home or self-care (01) ==
LOC: C.ER 22:45
DX: F10.129 Alcohol abuse with intoxication, unspecified (principal); E11.9 Type 2 diabetes mellitus without complications; E78.00 Pure hypercholesterolemia, unspecified; I10 Essential (primary) hypertension

== ENCOUNTER 2018-06-04 22:16 | Emergency (ER) | payer MEDICAID ==
[2018-06-04 22:16] VITALS: BMI 23.6
--- NOTE | 2018-06-05 01:06 | C.PDOC ---
History Of Present Illness 48 year old male brought in by EMS after being found intoxicated in public. Denies any complaints at this time. Time Seen by Provider: 06/04/18 22:30 Chief Complaint (Nursing): Substance Abuse History Per: Patient History/Exam Limitations: no limitations Onset/Duration Of Symptoms: Hrs Current Symptoms Are (Timing): Still Present Modifying Factor(s): Alcohol Involuntary Hold By: None Recent travel outside of the [place]: No Past Medical History Reviewed: Historical Data, Nursing Documentation, Vital Signs Vital Signs: Last Vital Signs Temp 97.6 F 06/04/18 22:22 Pulse 100 H 06/04/18 22:22 Resp 19 06/04/18 22:22 BP 100/59 L 06/04/18 22:22 Pulse Ox 96 06/04/18 22:22 - Medical History PMH: Diabetes (cannot recall medications), HTN, Hypercholesterolemia Denies: Chronic Kidney Disease Family History: States: Unknown Family Hx - Social History Hx Tobacco Use: No Hx Alcohol Use: Yes Hx Substance Use: No - Immunization History Hx Tetanus Toxoid Vaccination: No Hx Influenza Vaccination: No Hx Pneumococcal Vaccination: No Review Of Systems Except As Marked, All Systems Reviewed And Found Negative. Constitutional: Positive for: Other (ETOH intoxication) Physical Exam - Physical Exam Additional Physical Exam Comments: Constitutional: No acute distress. Head: Normocephalic. Atraumatic. Eyes: PERRL. ENT: Moist mucous membranes. Neck: Supple. Cardiovascular: Regular rate. Radial pulse 2+ bilaterally. Chest: No tenderness. Respiratory: Clear to auscultation bilaterally. GI: Soft. Nontender. Nondistended. Back: No CVA tenderness. Musculoskeletal: No tenderness or swelling of extremities. Skin: No rash. Neurologic: Alert, no focal deficit. ED Course And Treatment O2 Sat by Pulse Oximetry: 96 (Room air) Pulse Ox Interpretation: Normal Medical Decision Making Medical Decision Making: Will observe for sobriety. Disposition - Disposition Disposition: HOME/ ROUTINE Disposition Time: 23:59 Condition: STABLE Forms: [facility] (Amharic) - Clinical Impression Clinical Impression: Alcohol intoxication - Scribe Statement The provider has reviewed the documentation as recorded by the Scribe Boyd Urias All medical record entries made by the Scribe were at my direction and personally dictated by me. I have reviewed the chart and agree that the record accurately reflects my personal performance of the history, physical exam, medical decision making, and the department course for this patient. I have also personally directed, reviewed, and agree with the discharge instructions and disposition.
[2018-06-05 06:01] VITALS: BP 97/65; PULSE 82; RESP 13; TEMP 98.2; O2SAT 99
[2018-06-05] MEDS ORDERED: Ammonia 2% Inhalant ONE ×2 (06:29→06:37)
== END 2018-06-05 06:59 | disposition home or self-care (01) ==
LOC: C.ER 22:16
DX: F10.129 Alcohol abuse with intoxication, unspecified (principal); E11.9 Type 2 diabetes mellitus without complications

== ENCOUNTER 2018-06-09 23:55 | Emergency (ER) | payer MEDICAID ==
[2018-06-10 02:54] VITALS: BMI 24.2
--- NOTE | 2018-06-10 04:20 | C.PDOC ---
History Of Present Illness 48 year old male brought in via EMS for public intoxication. Patient has no complaints this time. History Per: Patient, EMS History/Exam Limitations: no limitations Onset/Duration Of Symptoms: Hrs Current Symptoms Are (Timing): Still Present Modifying Factor(s): Alcohol Recent travel outside of the [place]: No Past Medical History Reviewed: Historical Data, Nursing Documentation, Vital Signs - Medical History PMH: Diabetes (cannot recall medications), HTN, Hypercholesterolemia Denies: Chronic Kidney Disease Family History: States: Unknown Family Hx - Social History Hx Tobacco Use: No Hx Alcohol Use: Yes Hx Substance Use: No - Immunization History Hx Tetanus Toxoid Vaccination: No Hx Influenza Vaccination: No Hx Pneumococcal Vaccination: No Review Of Systems Constitutional: Positive for: Other (ETOH intoxication) Cardiovascular: Negative for: Chest Pain, Palpitations Respiratory: Negative for: Cough, Shortness of Breath Gastrointestinal: Negative for: Nausea, Vomiting Neurological: Negative for: Weakness, Numbness Physical Exam - Physical Exam Appears: Non-toxic, Other (ETOH on breath, agitated and verbally abusive) Skin: Normal Color, Warm, Dry Head: Atraumatic, Normacephalic Eye(s): bilateral: Normal Inspection Oral Mucosa: Moist Neck: Normal, Supple Chest: Symmetrical, No Tenderness Cardiovascular: Rhythm Regular Respiratory: Normal Breath Sounds, No Rales, No Rhonchi, No Wheezing Gastrointestinal/Abdominal: Soft, No Tenderness Neurological/Psych: Oriented x3, Normal Speech ED Course And Treatment Progress Note: Patient placed in 4 point restraints and sedated. Disposition Counseled Patient/Family Regarding: Diagnosis - Disposition Referrals: [facility] [Outside] Disposition: HOME/ ROUTINE Disposition Time: 05:40 Condition: STABLE Instructions: Alcohol Abuse and Alcoholism (DC) - POA Present On Arrival: None - Clinical Impression Clinical Impression: Alcohol intoxication - Scribe Statement The provider has reviewed the documentation as recorded by the Scribe Boyd Urias All medical record entries made by the Scribe were at my direction and personally dictated by me. I have reviewed the chart and agree that the record accurately reflects my personal performance of the history, physical exam, medical decision making, and the department course for this patient. I have also personally directed, reviewed, and agree with the discharge instructions and disposition.
[2018-06-10 10:03] LABS: BASO % 1.2 % (0.0-2.0); EOS # 0.1 K/uL (0.0-0.7); EOS % 4.2 % (0.0-4.0); HEMOGLOBIN 14.7 g/dL (12.0-18.0); LYMPH # 1.5 K/uL (1.0-4.3); MEAN CELL VOLUME 98.6 fL (80.0-94.0); MEAN CORPUSCULAR HEMOGLOBIN 33.2 pg (27.0-31.0); MEAN CORPUSCULAR HGB CONC 33.7 g/dL (33.0-37.0); MONO # 0.3 K/uL (0.0-0.8); MONO % 7.6 % (0.0-10.0); NEUT # 1.5 K/uL (1.8-7.0); NRBC % 0.2 % (0.0-2.0); RBC 4.43 Mil/uL (4.40-5.90); RED CELL DISTRIBUTION WIDTH 12.9 % (11.5-14.5); WHITE BLOOD COUNT 3.5 K/uL (4.8-10.8)
[2018-06-10 10:32] LABS: BLOOD UREA NITROGEN 9 mg/dL (9-20); GFR NON-AFRICAN AMERICAN > 60
[2018-06-10 10:33] LABS: ALB/GLOB RATIO 1.5 (1.0-2.1); ALBUMIN 4.4 g/dL (3.5-5.0); ALT/SGPT 26 U/L (21-72); AST/SGOT 38 U/L (17-59); CALCIUM 8.8 mg/dl (8.6-10.4)
== END 2018-06-10 06:17 | disposition home or self-care (01) ==
LOC: C.ER 23:55
DX: F10.129 Alcohol abuse with intoxication, unspecified (principal); Y90.9 Presence of alcohol in blood, level not specified
CPT/HCPCS: 80053; 80320; 85025; 96372; 99281; J1630; J2060

== ENCOUNTER 2018-10-06 22:01 | Emergency (ER) | payer MEDICAID ==
[2018-10-06 22:01] VITALS: BMI 24.2
[2018-10-06 22:14] VITALS: BP 112/76; PULSE 98; RESP 20; TEMP 98.2; O2SAT 99
== END 2018-10-06 22:06 | disposition left against medical advice (07) ==
LOC: C.ER 22:01
DX: Z02.89 Encounter for other administrative examinations (principal)